=== PATIENT | female | born 1970 | race African-American/Black ===

== ENCOUNTER 2022-10-03 19:46 | Emergency (ER) | payer BC, OTHER, SELFPAY ==
[2022-10-03] VITALS (12 sets, daily range): BP systolic 102–140; BP diastolic 68–87; PULSE 69–82; RESP 16; TEMP 36.7; O2SAT 91–97; BMI 37.6
--- NOTE | 2022-10-03 20:01 | ED_ITS ---
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 Patient states that the pain has been coming and going but never completely goes away. At present it is right 6-7 and is quite painful. It does not increase with deep breathing. Patient states that the pain radiates to her left arm and agrees that radiates to her back as well. It does not appear to be positional. Patient has not had pain like this in the past. No fevers or chills. Related Data Home Medications Medication Instructions Recorded Confirmed venlafaxine 150 mg 150 mg PO DAILY 10/03/22 10/03/22 capsule,extended release 24 hr venlafaxine 75 mg capsule,extended 75 mg PO DAILY 10/03/22 10/03/22 release 24 hr Allergies Allergy/AdvReac Type Severity Reaction Status Date / Time No Known Drug Allergies Allergy Verified 10/03/22 19:59 Review of Systems Status of ROS Reports: 10 or more systems reviewed and unremarkable except as noted in History and below Const Denies: fever, chills or fatigue ENMT Denies: throat pain, neck pain, throat swelling or difficulty swallowing Cardio Reports: chest pain; Denies: palpitations, swelling of feet/ankles, lightheadedness or shortness of breath with exertion Resp Denies: shortness of breath GI Denies: abdominal pain, nausea, vomiting or difficulty swallowing Denies: painful urination Musculo Reports: back pain; Denies: neck pain or extremity pain Integ/Breast Denies: rash Neuro Reports: numbness in extremities (Left arm and left leg); Denies: headache Endo Denies: fatigue Allergy/Immuno Denies: throat swelling PFSH PFSH Social History Smoking Status: Never smoker How often do you have a drink containing alcohol: monthly or less AUDIT-C Alcohol total score: 1 Non-prescribed substance use: denies use Exam Narrative Exam Narrative: Patient is very pleasant well-spoken woman in no acute distress. Head is atraumatic normocephalic. Face is symmetrical. Neck is supple without lymphadenopathy. Oral cavity with moist mucous membranes. Heart with regular rate and rhythm. No murmur or rub is auscultated. Lungs are clear bilaterally. 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 Negative Rivas sign. Lower extremities without edema. No calf tenderness. Const Vital Signs, click to edit/add: Vital Signs - 24 hr 10/03/22 20:00 10/03/22 20:45 10/03/22 20:46 Temperature 98.1 F Pulse Rate 79 78 Pulse Rate [Right Pulse Oximeter] 82 Respiratory Rate 16 Blood Pressure 104/68 Blood Pressure [Left Upper Arm] 117/78 Pulse Oximetry 95 94 94 Oxygen Delivery Method Room Air 10/03/22 21:00 10/03/22 21:02 10/03/22 21:15 Temperature Pulse Rate 71 72 75 Pulse Rate [Right Pulse Oximeter] Respiratory Rate Blood Pressure 116/72 Blood Pressure [Left Upper Arm] Pulse Oximetry 92 91 96 Oxygen Delivery Method 10/03/22 21:30 10/03/22 21:32 10/03/22 21:45 Temperature Pulse Rate 69 71 71 Pulse Rate [Right Pulse Oximeter] Respiratory Rate Blood Pressure 102/87 Blood Pressure [Left Upper Arm] Pulse Oximetry 95 97 95 Oxygen Delivery Method 10/03/22 22:33 10/03/22 23:02 10/03/22 23:32 Temperature Pulse Rate Pulse Rate [Right Pulse Oximeter] Respiratory Rate Blood Pressure 126/79 130/83 140/85 H Blood Pressure [Left Upper Arm] Pulse Oximetry Oxygen Delivery Method 10/04/22 00:21 10/04/22 00:30 10/04/22 00:36 Temperature Pulse Rate 74 70 75 Pulse Rate [Right Pulse Oximeter] Respiratory Rate Blood Pressure 99/81 Blood Pressure [Left Upper Arm] Pulse Oximetry 98 95 93 Oxygen Delivery Method 10/04/22 00:45 10/04/22 01:00 10/04/22 01:06 Temperature Pulse Rate 63 57 L 59 L Pulse Rate [Right Pulse Oximeter] Respiratory Rate Blood Pressure Blood Pressure [Left Upper Arm] Pulse Oximetry 96 97 98 Oxygen Delivery Method 10/04/22 01:15 10/04/22 01:31 10/04/22 01:35 Temperature Pulse Rate 63 118 H 57 L Pulse Rate [Right Pulse Oximeter] Respiratory Rate Blood Pressure Blood Pressure [Left Upper Arm] Pulse Oximetry 93 84 L 94 Oxygen Delivery Method 10/04/22 01:45 10/04/22 02:00 Temperature Pulse Rate 59 L 66 Pulse Rate [Right Pulse Oximeter] Respiratory Rate Blood Pressure Blood Pressure [Left Upper Arm] Pulse Oximetry 93 93 Oxygen Delivery Method Documenting provider has reviewed patient's vital signs: yes Course Course Hospital Course: Differential diagnosis includes but is not limited to acute coronary event, PE, aortic dissection, chest wall pain, bronchitis, pneumonia, costochondritis. Patient will placed on monitor technician, oximetry. Saline lock will be placed. Chest x-ray and labs to include CBC, comprehensive, CRP, troponin,, D-dimer have been ordered. EKG will be accomplished. Reevaluation(s) Reevaluation #1: Patient noted to have negative troponin. CRP mildly elevated at 1.4. She has continued to complain of pain. Will give Toradol 15 mg IV. Will also test for COVID. In light of her past history of a non provoked PE will obtain CT of the chest given her level of discomfort. She is in agreement. Reevaluation #2: Patient noted to be intermittently sleeping but still complaining of left-sided chest pain radiating to left arm and into shoulder blade that is coming and going. I did try to recreate this discomfort but patient has no pain with abduction and adduction against resistance. I do examine her back and there is no evidence of lesions or shingles type rash. She does have some tenderness noted on the upper thoracic vertebrae but no step-offs. No pain with palpation around the left scapula. Patient noted to have only mild discomfort while attempting to sit forward. Patient noted to have negative CT for PE but cholelithiasis. Follow-up ultrasound shows cholelithiasis without of out any evidence of cholecystitis. LFTs within normal limits. This time will do 3rd t roponin. Vital Signs Vital signs: Initial Vital Signs Temperature 98.1 F 10/03/22 20:00 Temperature Source Temporal Artery Scan 10/03/22 20:00 Pulse Rate 82 10/03/22 20:00 Pulse Rhythm Regular 10/03/22 20:00 Respiratory Rate 16 10/03/22 20:00 Blood Pressure 117/78 10/03/22 20:00 Blood Pressure Mean 91 10/03/22 20:00 Blood Pressure Position Sitting 10/03/22 20:00 Pulse Oximetry 95 10/03/22 20:00 Oxygen Delivery Method Room Air 10/03/22 20:00 Vital Signs Temperature 98.1 F 10/03/22 20:00 Pulse Rate 82 10/03/22 20:00 Respiratory Rate 16 10/03/22 20:00 Blood Pressure 117/78 10/03/22 20:00 Pulse Oximetry 95 10/03/22 20:00 Oxygen Delivery Method Room Air 10/03/22 20:00 Temperature 98.1 F 10/03/22 20:00 Pulse Rate 66 10/04/22 02:00 Respiratory Rate 16 10/03/22 20:00 Blood Pressure 99/81 10/04/22 00:36 Pulse Oximetry 93 10/04/22 02:00 Oxygen Delivery Method Room Air 10/03/22 20:00 MDM - Chest Pain MDM Narrative Medical decision making narrative: 1. Chest pain -unknown etiology. Patient has had negative troponin x 3 as well as reassuring EKGs. On the monitor she has had sinus rhythm without evidence of arrhythmia. CT of the chest and thoracic spine did not show any abnormalities. There did not appear to be any rotator cuff pathology although there was some questionable point tenderness along the left medial scapular edge and over the upper thoracic vertebrae. A trial of Toradol did not change her pain although it was noted that she was able to sleep intermittently during her stay and seems objectively improved. LFTs and ultrasound are normal in spite of cholelithiasis. Fortunately no evidence of cholecystitis. 2. Disposition-at this time will discharge patient home as she is had negative cardiac enzymes x3 after 1 week of pain. In addition EKG show no evidence of ischemia or abnormality. Fortunately no evidence of PE, pneumothorax, esophagitis, pericardial effusion, pneumonia. This most likely represents musculoskeletal process. Recommend continued use of anti-inflammatory either in the form of ibuprofen or Aleve. Will also give a small amount of Flexeril 10 mg tablet 1/2-1 tab p.o. q.8 hours p.r.n. discomfort/muscle relaxation need via instant meds. Recommend return to the ED for worsening symptoms. Recommend follow-up with primary MD Dr. Faye for recheck. Dictation done with voice recognition, and as a result, wrong word or [id number] substitutions may have occurred.? There may be errors in the script that have gone undetected.? Please consider this when interpreting information found in this chart. Medical Records Data Attestation: I reviewed the patient's medical records. Lab Data Attestation: I reviewed the patient's lab results. Labs: Lab Results 10/03/22 10/03/22 10/03/22 Range/Units 20:30 21:30 22:07 WBC 6.43 (4.50-11.00) K/uL RBC 4.91 (4.00-5.20) m/uL Hgb 12.9 (12.0-16.0) gm/dL Hct 40.7 (33.0-51.0) % MCV 83 (80-100) fL MCH 26 (26-34) pg MCHC 32 (32-36) gm/dL RDW Coeff of Ke 13.4 (11.5-15.5) % Plt Count 276 (140-440) K/uL Neut % (Auto) 57.6 (42.0-72.0) % Lymph % (Auto) 35.8 (20-44) % [place] % (Auto) 5.9 (0.0-11.0) % Eos % (Auto) 0.2 (0.0-7.0) % Baso % (Auto) 0.2 (0.0-3.0) % Neut # (Auto) 3.71 (1.7-7.0) K/uL Lymph # (Auto) 2.30 (0.90-2.90) K/uL [place] # (Auto) 0.40 (0.00-0.90) K/UL Eos # (Auto) 0.01 (0.00-0.50) K/uL Baso # (Auto) 0.01 (0.00-0.30) K/uL INR 1.01 (0.91-1.10) D-Dimer Quant (PE/DVT) 0.41 (0.00-0.50) ug/ml Sodium 142 (135-149) mmol/L Potassium 4.1 (3.6-5.1) mmol/L Chloride 109 (96-114) mmol/L Carbon Dioxide 26 (20-32) mmol/L BUN 16 (7-30) mg/dL Creatinine 1.3 (0.5-1.5) mg/dL Estimated Creat Clear 48.67 Estimated GFR 49 ml/min Glucose 105 (60-115) mg/dL Calcium 9.1 (8.4-10.6) mg/dL Total Bilirubin 0.4 (0.1-1.5) mg/dL Direct Bilirubin 0.2 (0.0-0.5) mg/dL AST 20 (12-35) U/L ALT 18 (4-35) U/L Alkaline Phosphatase 74 (40-150) U/L Troponin I < 0.01 L (0.01-0.04) ng/mL C-Reactive Protein 1.4 H (0.5-1.0) mg/dL NT-Pro-B Natriuret Pep < 20 pg/mL Total Protein 7.6 (6.0-8.3) g/dL Albumin 4.2 (3.3-5.0) g/dL SARS-CoV-2 (PCR) Negative SARS-CoV-2 (Negative) POC Troponin I 0.00 L (0.01-0.04) ng/ml 10/04/22 Range/Units 01:11 WBC (4.50-11.00) K/uL RBC (4.00-5.20) m/uL Hgb (12.0-16.0) gm/dL Hct (33.0-51.0) % MCV (80-100) fL MCH (26-34) pg MCHC (32-36) gm/dL RDW Coeff of Ke (11.5-15.5) % Plt Count (140-440) K/uL Neut % (Auto) (42.0-72.0) % Lymph % (Auto) (20-44) % [place] % (Auto) (0.0-11.0) % Eos % (Auto) (0.0-7.0) % Baso % (Auto) (0.0-3.0) % Neut # (Auto) (1.7-7.0) K/uL Lymph # (Auto) (0.90-2.90) K/uL [place] # (Auto) (0.00-0.90) K/UL Eos # (Auto) (0.00-0.50) K/uL Baso # (Auto) (0.00-0.30) K/uL INR (0.91-1.10) D-Dimer Quant (PE/DVT) (0.00-0.50) ug/ml Sodium (135-149) mmol/L Potassium (3.6-5.1) mmol/L Chloride (96-114) mmol/L Carbon Dioxide (20-32) mmol/L BUN (7-30) mg/dL Creatinine (0.5-1.5) mg/dL Estimated Creat Clear Estimated GFR ml/min Glucose (60-115) mg/dL Calcium (8.4-10.6) mg/dL Total Bilirubin (0.1-1.5) mg/dL Direct Bilirubin (0.0-0.5) mg/dL AST (12-35) U/L ALT (4-35) U/L Alkaline Phosphatase (40-150) U/L Troponin I (0.01-0.04) ng/mL C-Reactive Protein (0.5-1.0) mg/dL NT-Pro-B Natriuret Pep pg/mL Total Protein (6.0-8.3) g/dL Albumin (3.3-5.0) g/dL SARS-CoV-2 (PCR) (Negative) POC Troponin I 0.00 L (0.01-0.04) ng/ml Imaging Data Chest x-ray: Attestation: I have reviewed the pertinent imaging results. My impression: By my read no evidence of widened mediastinum, infiltrate. Radiologist's impression: The heart is normal in size. The pulmonary vasculature is within normal limits. The lungs are clear. The bones are unremarkable. IMPRESSION: No acute process. CT scan - chest: Attestation: I have reviewed the pertinent imaging results. My impression: No noticeable PE by my review. Radiologist's impression: Heart and vasculature: Contrast opacification of the pulmonary arterial tree is adequate. No sign of pulmonary embolism. Heart size is normal. Thoracic aorta and pulmonary artery are normal in caliber. Lungs and pleura: Mild bilateral lower lobe atelectasis. No consolidation or suspicious nodule.? No pleural effusions, pleural thickening, or pneumothorax. Lymph nodes/mediastinum: No pathologically enlarged lymph nodes. Calcified bihilar and mediastinal lymph nodes. Chest wall: No masses. Upper abdomen: Cholelithiasis. Bones: Unremarkable for age. IMPRESSION: No pulmonary embolism. No acute findings in the chest. Cholelithiasis. US - abdomen: Attestation: I have reviewed the pertinent imaging results. Radiologist's impression: Liver has normal contour. Normal echogenicity of the liver. No liver mass. No intrahepatic bile duct dilation. Cholelithiasis. No gallbladder wall thickening or pericholecystic fluid. Common duct measures 3 mm in caliber, within normal limits. Visualized pancreas is unremarkable. Right kidney measures 9.3 cm long axis. Normal renal parenchymal thickness and echogenicity. No renal mass. No hydronephrosis. Visualized IVC and aorta are unremarkable. IMPRESSION: 1. Cholelithiasis. No other findings of acute cholecystitis. 2. No bile duct dilation. Thoracic spine CT: Attestation: I have reviewed the pertinent imaging results. Radiologist's impression: ertebrae: Alignment is normal. There are no fractures or suspicious bony lesions. Discs and facet joints: Disc spaces and facets are within normal limits.? Extraspinal findings: Calcified bihilar and mediastinal lymph nodes. No pathologically enlarged lymph nodes. Cholelithiasis IMPRESSION: Unremarkable thoracic spine. No sign of acute injury. ECG Data Attestation: I personally reviewed and interpreted this ECG as follows: ECG interpretation date: 10/03/22 Interpretation: EKG by my read shows sinus rhythm at a rate of 85. Prolonged OR at 216 milliseconds borderline. I do not note any acute ST or T-wave changes. EKG 2. By my read shows sinus bradycardia at a rate of [address] or T-wave changes. Discharge Plan Discharge Clinical Impression: Atypical chest pain, Cholelithiasis Patient Disposition: Home, Self-Care Condition: Unchanged Additional Instructions: 1. Continue anti-inflammatory in the form of either Advil or Aleve per bottle instructions. Recommend taking this with food. Flexeril may be used for muscular discomfort. Would start off with a half a tablet instead of the full tablet. Do not drive or use alcohol if using this medication called Flexeril. 2. Return to the emergency room for worsening symptoms. Otherwise follow-up with your primary MD for a recheck. Prescriptions: No Action venlafaxine 75 mg capsule,extended release 24hr 75 mg PO DAILY venlafaxine 150 mg capsule,extended release 24hr 150 mg PO DAILY Follow Up/Referrals: Benita Faye DO [Primary Care Provider] - Stand Alone Forms: MyHealth Info Instructions
--- NOTE | 2022-10-03 20:21 | CRLHL7_ITS ---
For Patients: As a result of the Century Cures Act, medical imaging exams and procedure reports are released immediately into your electronic medical record. You may view this report before your referring provider. If you have questions, please contact your health care provider. INDICATION: Chest pain TECHNIQUE: Chest 1 view. COMPARISON: CT chest 07/10/2016 FINDINGS: The heart is normal in size. The pulmonary vasculature is within normal limits. The lungs are clear. The bones are unremarkable. IMPRESSION: No acute process. Dictated by Priyanka Moody MD @ 10/03/2022 9:07:32 PM Dictated by: Priyanka Moody MD @ 10/03/2022 21:07:55 (Electronically Signed)
[2022-10-03 20:43] LABS: Basophils Absolute Auto 0.01 K/uL (0.00-0.30); Basophils Percent Auto 0.2 % (0.0-3.0); Eosinophils Absolute Auto 0.01 K/uL (0.00-0.50); Eosinophils Percent Auto 0.2 % (0.0-7.0); Hematocrit 40.7 % (33.0-51.0); Hemoglobin* 12.9 gm/dL (12.0-16.0); Immature Granulocytes Abs Auto 0.02 K/uL (0.00-0.30); Immature Granulocytes Pct Auto 0.3 %; Lymphocytes Percent Auto 35.8 % (20-44); Mean Corpuscular HGB Conc 32 gm/dL (32-36); Mean Corpuscular Hemoglobin 26 pg (26-34); Mean Corpuscular Volume 83 fL (80-100); Monocytes Percent Auto 5.9 % (0.0-11.0); Neutrophils Absolute Auto 3.71 K/uL (1.7-7.0); Neutrophils Percent Auto 57.6 % (42.0-72.0); Platelet Count* 276 K/uL (140-440); RDW Coefficient of Variation % 13.4 % (11.5-15.5); Red Blood Count 4.91 m/uL (4.00-5.20); White Blood Count* 6.43 K/uL (4.50-11.00)
[2022-10-03 20:46] LABS: Slide Review Reflex No
[2022-10-03 21:00] LABS: INR 1.01 (0.91-1.10); Prothrombin Time 13.9 Seconds
[2022-10-03 21:02] LABS: D Dimer Quantitative* 0.41 ug/ml (0.00-0.50)
[2022-10-03 21:08] LABS: Albumin* 4.2 g/dL (3.3-5.0); Chloride* 109 mmol/L (96-114)
[2022-10-03 21:09] LABS: Potassium* 4.1 mmol/L (3.6-5.1); Sodium* 142 mmol/L (135-149)
[2022-10-03 21:11] LABS: Alkaline Phosphatase* 74 U/L (40-150); Aspartate Amino Transferase* 20 U/L (12-35); Bilirubin Direct* 0.2 mg/dL (0.0-0.5); Bilirubin Total* 0.4 mg/dL (0.1-1.5); Carbon Dioxide* 26 mmol/L (20-32); Creatinine* 1.3 mg/dL (0.5-1.5); Est. Creatinine Clearance* 48.67; Estimated Glomerular Filt Rate 49 ml/min; Total Protein* 7.6 g/dL (6.0-8.3)
[2022-10-03 21:12] LABS: Alanine Aminotransferase* 18 U/L (4-35); Blood Urea Nitrogen* 16 mg/dL (7-30); Calcium* 9.1 mg/dL (8.4-10.6); Glucose* 105 mg/dL (60-115)
[2022-10-03 21:14] LABS: C Reactive Protein* 1.4 mg/dL (0.5-1.0)
[2022-10-03 21:21] LABS: NT Pro B Type NatriureticPept* < 20 pg/mL
--- NOTE | 2022-10-03 21:24 | CRLHL7_ITS ---
For Patients: As a result of the Century Cures Act, medical imaging exams and procedure reports are released immediately into your electronic medical record. You may view this report before your referring provider. If you have questions, please contact your health care provider. INDICATION: History of PE, chest pain with radiation to back and left arm. TECHNIQUE: CT chest PE was acquired with 95 cc Isovue 370 IV contrast. Permanently recorded images are archived. COMPARISON: Chest CT 07/10/2016. FINDINGS: Heart and vasculature: Contrast opacification of the pulmonary arterial tree is adequate. No sign of pulmonary embolism. Heart size is normal. Thoracic aorta and pulmonary artery are normal in caliber. Lungs and pleura: Mild bilateral lower lobe atelectasis. No consolidation or suspicious nodule. No pleural effusions, pleural thickening, or pneumothorax. Lymph nodes/mediastinum: No pathologically enlarged lymph nodes. Calcified bihilar and mediastinal lymph nodes. Chest wall: No masses. Upper abdomen: Cholelithiasis. Bones: Unremarkable for age. IMPRESSION: No pulmonary embolism. No acute findings in the chest. Cholelithiasis. Please note that all CT scans at this facility use dose modulation, iterative reconstruction, and/or weight-based dosing when appropriate to reduce radiation dose to as low as reasonably achievable. Dictated by Lb Amezquita MD @ 10/03/2022 10:58:33 PM (Electronically Signed)
[2022-10-03 22:07] LABS: Troponin I* < 0.01 ng/mL (0.01-0.04)
[2022-10-03] MEDS: KETOROLAC 15 MG/ML inj IVP (22:11)
[2022-10-03 22:19] LABS: SARS PCR* Negative SARS-CoV-2 (Negative)
[2022-10-04] VITALS (11 sets, daily range): BP systolic 99; BP diastolic 81; PULSE 57–118; O2SAT 84–98
--- NOTE | 2022-10-04 01:23 | CRLHL7_ITS ---
For Patients: As a result of the Cures Act, medical imaging exams and procedure reports are released immediately into your electronic medical record. You may view this report before your referring provider. If you have questions, please contact your health care provider. INDICATION: Interscapular and upper thoracic spine pain. TECHNIQUE: CT thoracic spine with contrast. Permanently recorded images are archived. COMPARISON: Chest CT from the same day. FINDINGS: Vertebrae: Alignment is normal. There are no fractures or suspicious bony lesions. Discs and facet joints: Disc spaces and facets are within normal limits. Extraspinal findings: Calcified bihilar and mediastinal lymph nodes. No pathologically enlarged lymph nodes. Cholelithiasis IMPRESSION: Unremarkable thoracic spine. No sign of acute injury. Please note that all CT scans at this facility use dose modulation, iterative reconstruction, and/or weight-based dosing when appropriate to reduce radiation dose to as low as reasonably achievable. Dictated by Lb Amezquita MD @ 10/04/2022 1:51:50 AM (Electronically Signed)
--- NOTE | 2022-10-04 23:03 | CRLHL7_ITS ---
For Patients: As a result of the Century Cures Act, medical imaging exams and procedure reports are released immediately into your electronic medical record. You may view this report before your referring provider. If you have questions, please contact your health care provider. HISTORY: Cholelithiasis. TECHNIQUE: Ultrasound of the right upper quadrant. COMPARISON: CT chest 10/03/2022. FINDINGS: Liver has normal contour. Normal echogenicity of the liver. No liver mass. No intrahepatic bile duct dilation. Cholelithiasis. No gallbladder wall thickening or pericholecystic fluid. Common duct measures 3 mm in caliber, within normal limits. Visualized pancreas is unremarkable. Right kidney measures 9.3 cm long axis. Normal renal parenchymal thickness and echogenicity. No renal mass. No hydronephrosis. Visualized IVC and aorta are unremarkable. IMPRESSION: 1. Cholelithiasis. No other findings of acute cholecystitis. 2. No bile duct dilation. Dictated by Stanley Hinds MD @ 10/04/2022 1:04:37 AM (Electronically Signed)
== END 2022-10-04 02:15 | disposition home or self-care (01) ==
PROVIDERS: Emergency Provider Family Medicine; PCP Family Medicine
DX: K80.20 Calculus of gallbladder without cholecystitis without obstruction (principal); R07.89 Other chest pain
CPT/HCPCS: 36415; 71045; 71260; 72128; 76705; 80048; 80076; 83880; 84484; 85025; 85379; 85610; 86140; 87635; 93005; 96374; 99285; J1885; Q9967

== ENCOUNTER 2023-11-25 09:03 | Day surgery (SDC) | payer BC, OTHER, SELFPAY ==
[2023-11-25] VITALS (26 sets, daily range): BP systolic 80–146; BP diastolic 57–90; PULSE 71–100; RESP 12–22; TEMP 36.2–37.4; O2SAT 91–99; BMI 41.3
--- NOTE | 2023-11-25 09:17 | CRLHL7_ITS ---
For Patients: As a result of the Century Cures Act, medical imaging exams and procedure reports are released immediately into your electronic medical record. You may view this report before your referring provider. If you have questions, please contact your health care provider. Indication: Upper abdominal pain and nausea Technique: Volumetric multidetector CT images of the abdomen and pelvis were obtained after the administration of intravenous contrast. 125 cc Isovue 370 low osmolar intravenous contrast Comparison: None available. Findings: The lung bases are clear. The liver is normal in attenuation without intrahepatic biliary ductal dilatation. The portal vein is patent. There is markedly hydropic gallbladder with dependent calculi and sludge. There is mild gallbladder wall thickening and pericholecystic inflammatory change. There is no significant common biliary ductal dilatation or abrupt cut off. The spleen is normal in enhancement and size. The stomach and duodenum are grossly unremarkable. The pancreas is normal in enhancement without significant atrophy. The adrenal glands are unremarkable. Cystic changes of the kidneys with otherwise preserved corticomedullary differentiation. No evidence of distal obstructive radiopaque calculus. Moderate stool is seen throughout the colon with questionable mild thickening of the hepatic flexure which may represent secondary inflammatory change. The appendix is unremarkable. There is no significant mesenteric, retroperitoneal, or pelvic sidewall lymph nodes. The aorta is nonaneurysmal. There is no significant atherosclerotic disease appreciated. The solid pelvic viscera are grossly unremarkable. There is no free fluid or free air. The anterior abdominal wall is intact without significant hernias. The lumbar vertebral body heights are grossly maintained in satisfactory alignment without evidence of displaced fracture, lytic or blastic lesion. Impression: Markedly hydropic gallbladder with layering radiopaque calculi. There is gallbladder wall thickening and pericholecystic fluid. Findings are concerning for developing acute cholecystitis. Recommend follow-up with right upper quadrant ultrasound. There is additional questionable secondary thickening of the adjacent hepatic flexure of the colon. Please note that all CT scans at this facility use dose modulation, iterative reconstruction, and/or weight-based dosing when appropriate to reduce radiation dose to as low as reasonably achievable. Dictated by Peña Casillas MD @ 11/25/2023 10:42:23 AM (Electronically Signed)
--- NOTE | 2023-11-25 09:25 | ED.ABDPAIN ---
HPI - Abdominal Pain General Chief Complaint: Abdominal Pain Stated Complaint: gastritis - abdominal pain Time Seen by Provider: 11/25/23 09:09 History of Present Illness HPI narrative: Patient is a 53-year-old woman who presents with 2 days of pain in the epigastrium extending into the superior umbilical region. She has nausea but no vomiting no change in her bowel or bladder no fevers no chills. She has had no similar symptoms previously. She went to the clinic today was transported to the emergency room for further evaluation. Patient has had no recent travel or change in her diet. She has no sick contacts. Again no blood in her stool. Patient otherwise been in her usual good state of health. Related Data Home Medications ?Medication ?Instructions ?Recorded ?Confirmed venlafaxine 150 mg 150 mg PO DAILY 10/03/22 10/03/22 capsule,extended release 24 hr venlafaxine 75 mg capsule,extended 75 mg PO DAILY 10/03/22 10/03/22 release 24 hr Allergies Allergy/AdvReac Type Severity Reaction Status Date / Time No Known Drug Allergies Allergy Verified 11/25/23 10:28 Review of Systems Status of ROS Reports: 10 or more systems reviewed and unremarkable except as noted in History and below PFSH FOR[facility]LY [facility] Social History Smoking Status: Never smoker How often do you have a drink containing alcohol: monthly or less AUDIT-C Alcohol total score: 1 Non-prescribed substance use: denies use Exam Narrative: Exam Narrative: EXAM GENERAL: Patient appears uncomfortable and anxious. EYES: No scleral icterus. LYMPH: No supraclavicular or cervical lymphadenopathy. SKIN: Visible skin seen during exam normal or with benign process only. EXT: No dependent lower extremity pedal edema. HEART: Regular rate and rhythm with no murmurs, rubs, or gallops. LUNGS: Clear to auscultation bilaterally with no crackles or wheezes. ABD: Bowel sounds present with tenderness to palpation in the area superior to the umbilicus extending to the epigastrium.. PSYCH: Good eye contact, speech is not pressured. Const: Vital Signs, click to edit/add: Vital Signs - 24 hr 11/25/23 09:10 11/25/23 09:55 11/25/23 11:15 Temperature 97.9 F 97.9 F Pulse Rate [Pulse Oximeter] 94 81 Respiratory Rate 22 16 Blood Pressure [Ri ght Upper Arm] 120/85 126/77 Pulse Oximetry 96 96 96 Oxygen Delivery Me thod Room Air Room Air Course Vital Signs Vital signs: Initial Vital Signs Temperature 97.9 F 11/25/23 09:10 Temperature Source Temporal Artery Scan 11/25/23 09:10 Pulse Rate 94 11/25/23 09:10 Respiratory Rate 22 11/25/23 09:10 Blood Pressure 120/85 11/25/23 09:10 Blood Pressure Mean 96 11/25/23 09:10 Blood Pressure Position Sitting 11/25/23 09:10 Pulse Oximetry 96 11/25/23 09:10 Oxygen Delivery Method Room Air 11/25/23 09:10 Vital Signs Temperature 97.9 F 11/25/23 09:10 Pulse Rate 94 11/25/23 09:10 Respiratory Rate 22 11/25/23 09:10 Blood Pressure 120/85 11/25/23 09:10 Pulse Oximetry 96 11/25/23 09:10 Oxygen Delivery Method Room Air 11/25/23 09:10 Temperature 97.9 F 11/25/23 11:15 Pulse Rate 81 11/25/23 11:15 Respiratory Rate 16 11/25/23 11:15 Blood Pressure 126/77 11/25/23 11:15 Pulse Oximetry 96 11/25/23 11:15 Oxygen Delivery Method Room Air 11/25/23 11:15 Medications Administered Medications: Generic Name Dose Route Start Last Admin Trade Name Freq PRN Reason Stop Dose Admin Ondansetron HCl 4 mg 11/25/23 09:17 11/25/23 09:44 Ondansetron 2 Mg/Ml Inj IVP 4 mg ONCE PRN Administration Discontinued Medications Generic Name Dose Route Start Last Admin Trade Name Freq PRN Reason Stop Dose Admin Hydromorphone HCl 0.5 mg 11/25/23 09:17 11/25/23 09:44 Hydromorphone 0.5 Mg/0.5 Ml Inj IVP 11/25/23 09:18 0.5 mg ONCE ONE Administration Sodium Chloride 1,000 mls @ 1,000 mls/hr 11/25/23 09:18 11/25/23 11:04 0.9 % Sodium Chloride 1000 Ml IV 11/25/23 10:17 Infused .Q1H COLBY Infusion MDM - Abdominal Pain MDM Narrative Medical decision making narrative: Patient is a 53-year-old woman who presents with 1 day of epigastric and right upper quadrant pain. She has leukocytosis and evidence of cholecystitis on both her CT of the abdomen pelvis as well as her ultrasound of the right upper quadrant. I did give her a L of normal saline 4 mg of Zofran and 0.5 mg of Dilaudid with resolution of her symptoms. General surgery consult was obtained the patient will be admitted to general surgery service for likely cholecystectomy. Patient will be started on IV Zosyn. Differential diagnosis includes but not limited to acute cholecystitis acute cholelithiasis hepatitis bowel obstruction GERD peptic ulcer. Lab Data Labs: Lab Results 11/25/23 11/25/23 Range/Units 09:32 Unknown WBC 11.13 H (4.50-11.00) K/uL RBC 5.81 H (4.00-5.20) m/uL Hgb 15.4 (12.0-16.0) gm/dL Hct 47.4 (33.0-51.0) % MCV 82 (80-100) fL MCH 27 (26-34) pg MCHC 33 (32-36) gm/dL RDW Coeff of Ke 13.3 (11.5-15.5) % Plt Count 262 (140-440) K/uL Neut % (Auto) 72.2 H (42.0-72.0) % Lymph % (Auto) 22.3 (20-44) % Trinity % (Auto) 4.5 (0.0-11.0) % Eos % (Auto) 0.0 (0.0-7.0) % Baso % (Auto) 0.1 (0.0-3.0) % Neut # (Auto) 8.00 H (1.7-7.0) K/uL Lymph # (Auto) 2.50 (0.90-2.90) K/uL Trinity # (Auto) 0.50 (0.00-0.90) K/UL Eos # (Auto) 0.00 (0.00-0.50) K/uL Baso # (Auto) 0.00 (0.00-0.30) K/uL Abs Immat Gran (auto) 0.10 (0.00-0.30) K/uL Imm/Tot Granulo (auto) 0.9 % Sodium 138 (135-149) mmol/L Potassium 4.2 (3.6-5.1) mmol/L Chloride 105 (96-114) mmol/L Carbon Dioxide 25 (20-32) mmol/L Anion Gap 8 (7-15) mEq/L BUN 10 (7-30) mg/dL Creatinine 1.2 (0.5-1.5) mg/dL Estimated Creat Clear 49.59 Estimated GFR 53 ml/min Glucose 127 H (60-115) mg/dL Lactate 1.8 (0.5-1.9) mmol/L Calcium 9.7 (8.4-10.6) mg/dL Total Bilirubin 1.1 (0.1-1.5) mg/dL AST 28 (12-35) U/L ALT 22 (4-35) U/L Alkaline Phosphatase 106 (40-150) U/L Total Protein 9.0 H (6.0-8.3) g/dL Albumin 5.2 H (3.3-5.0) g/dL Amylase 79 (18-89) U/L Urine Color Yellow (Yellow) Urine Appearance Clear (Clear) Urine pH 7.5 (5.0-8.5) Ur Specific Floyd 1.020 (1.000-1.030) Urine Protein Trace A (Negative) Urine Glucose (UA) Negative (Negative) Urine Ketones 3+ A (Negative) Urine Blood Negative (Negative) Urine Nitrite Negative (Negative) Urine Bilirubin Negative (Negative) Urine Urobilinogen 1.0 (0.2-1.0) Ur Leukocyte Esterase Negative (Negative) Urine RBC 0-2 (0-2) Urine WBC 0-2 (0-5) Ur Squamous Epith Cells Few (None-Few) Urine Bacteria None (None) Discharge Plan Discharge Clinical Impression: Acute cholecystitis Patient Disposition: Admitted As Observation Condition: Stable Activity Level: Other Discharge Diet: Other Prescriptions: No Action venlafaxine 75 mg capsule,extended release 24hr 75 mg PO DAILY venlafaxine 150 mg capsule,extended release 24hr 150 mg PO DAILY Follow Up/Referrals: Benita Faye DO [Primary Care Provider] -
[2023-11-25 09:35] LABS: Lactate* 1.8 mmol/L (0.5-1.9)
[2023-11-25 09:41] LABS: Basophils Percent Auto 0.1 % (0.0-3.0); Hematocrit 47.4 % (33.0-51.0); Hemoglobin* 15.4 gm/dL (12.0-16.0); Immature Granulocytes Pct Auto 0.9 %; Lymphocytes Percent Auto 22.3 % (20-44); Mean Corpuscular HGB Conc 33 gm/dL (32-36); Mean Corpuscular Hemoglobin 27 pg (26-34); Mean Corpuscular Volume 82 fL (80-100); Monocytes Percent Auto 4.5 % (0.0-11.0); Neutrophils Percent Auto 72.2 % (42.0-72.0); Platelet Count* 262 K/uL (140-440); RDW Coefficient of Variation % 13.3 % (11.5-15.5); Red Blood Count 5.81 m/uL (4.00-5.20); White Blood Count* 11.13 K/uL (4.50-11.00)
[2023-11-25] MEDS: HYDROmorphone 0.5 mg/0.5 ml inj IVP ×2 (09:44→12:36)
[2023-11-25] MEDS: ONDANSETRON 2 MG/ML inj 4 MG IVP (09:44)
[2023-11-25 09:50] LABS: Slide Review Reflex No
[2023-11-25 09:51] LABS: Albumin* 5.2 g/dL (3.3-5.0); Chloride* 105 mmol/L (96-114); Potassium* 4.2 mmol/L (3.6-5.1); Sodium* 138 mmol/L (135-149)
[2023-11-25 09:53] LABS: Amylase* 79 U/L (18-89); Creatinine* 1.2 mg/dL (0.5-1.5); Est. Creatinine Clearance* 49.59; Estimated Glomerular Filt Rate 53 ml/min
[2023-11-25 09:54] LABS: Alanine Aminotransferase* 22 U/L (4-35); Alkaline Phosphatase* 106 U/L (40-150); Anion Gap 8 mEq/L (7-15); Aspartate Amino Transferase* 28 U/L (12-35); Bilirubin Total* 1.1 mg/dL (0.1-1.5); Blood Urea Nitrogen* 10 mg/dL (7-30); Carbon Dioxide* 25 mmol/L (20-32); Glucose* 127 mg/dL (60-115)
[2023-11-25 09:55] LABS: Calcium* 9.7 mg/dL (8.4-10.6)
[2023-11-25] MEDS: 0.9 % SODIUM CHLORIDE 1000 ml 1,000 ML IV (10:19)
[2023-11-25 10:31] LABS: Appearance Urine Clear (Clear); Bilirubin Urine Negative (Negative); Blood Urine Negative (Negative); Color Urine Yellow (Yellow); Glucose Urine Negative (Negative); Ketones Urine 3+ (Negative); Leukocyte Esterase Urine Negative (Negative); Nitrite Urine Negative (Negative); Protein Urine Trace (Negative); pH Urine 7.5 (5.0-8.5)
[2023-11-25 10:45] LABS: RBC Urine 0-2 (0-2); Squamous Epithelial Cell Urine Few (None-Few); WBC Urine 0-2 (0-5)
--- NOTE | 2023-11-25 10:56 | CRLHL7_ITS ---
For Patients: As a result of the Century Cures Act, medical imaging exams and procedure reports are released immediately into your electronic medical record. You may view this report before your referring provider. If you have questions, please contact your health care provider. Indication: Right upper quadrant abdominal pain Technique: Multiple transverse and longitudinal sonographic grayscale images of the right upper quadrant of the abdomen were obtained, supplemented with color, power, and spectral Doppler imaging. Comparison: Same day CT. Findings: CBD: 0.7 cm. Gallbladder: Positive sonographic Rivas sign. Thickened wall. Cholelithiasis. Impression: 1. Thickened gallbladder wall, cholelithiasis, and positive sonographic Rivas sign. Findings are compatible with acute cholecystitis. 2. Mildly dilated biliary tree. Consider correlation with bilirubin levels to assess for obstruction. Dictated by Milo Hagan MD @ 11/25/2023 11:51:07 AM (Electronically Signed)
[2023-11-25] MEDS: PIPERACILLIN/TAZOBACTAM 3.375 GM in 0.9 % SODIUM CHLORIDE Mini-bag 100 ML IVPB (12:10)
--- NOTE | 2023-11-25 12:56 | PM.GSHP ---
History of Present Illness History of Present Illness Date Seen: 11/25/23 Chief complaint: gastritis - abdominal pain Narrative: The patient is a 53-year-old female who has had abdominal pain for 2 days and was referred to the emergency department by her primary care provider. She states that approximately a month ago she had similar symptoms of epigastric pain. It was thought to be related to gastritis. She was started on pantoprazole twice daily which did seem to help her symptoms. Up until 2 nights ago she was feeling fine until she developed recurrent pain. The pain is constant in her epigastrium which radiates across both sides. Occasionally it radiates to her back. The pain has radiated occasionally as well to her chest. She has not vomited but she has had nausea. She has not had a fever. No change in bowel habits. She tried to take rhonda which helped somewhat. She presented to the emergency department and was found to have acute cholecystitis. She has had no prior surgeries. 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 [employer] Smoking Status: Never smoker How often do you have a drink containing alcohol: monthly or less AUDIT-C Alcohol total score: 1 Non-prescribed substance use: denies use Meds Home Medications and Allergies Home Medications ?Medication ?Instructions ?Recorded ?Confirmed ?Type venlafaxine 150 mg 150 mg PO DAILY 10/03/22 10/03/22 History capsule,extended release 24 hr venlafaxine 75 mg capsule,extended 75 mg PO DAILY 10/03/22 10/03/22 History release 24 hr Allergies Allergy/AdvReac Type Severity Reaction Status Date / Time No Known Drug Allergies Allergy Verified 11/25/23 10:28 Exam Narrative: Exam Narrative: General appearance: Alert, cooperative, and in no distress Eyes: PERRLA, eye lids clear, and sclera white HENT Head: Normocephalic Ears: External ears normal Pulmonary: Clear to auscultation bilaterally Cardiovascular Heart: Regular rate and rhythm Extremities: warm and well perfused Gastrointestinal Abdominal: Protuberant. Patient is mildly tender in the upper abdomen. Musculoskeletal: Extremities: Upper: Both upper extremities have normal joint range of motion and intact strength. Lower: Both lower extremities have normal joint range of motion and intact strength. Skin: Normal skin color, texture, and turgor. Neurologic: No focal deficits Psychiatric: Alert, oriented, cooperative, normal affect. Const: Vital Signs, click to edit/add: Vital Signs - 24 hr 11/25/23 09:10 11/25/23 09:55 11/25/23 11:15 Temperature 97.9 F 97.9 F Pulse Rate [Pulse Oximeter] 94 81 Respiratory Rate 22 16 Blood Pressure [Ri ght Upper Arm] 120/85 126/77 Pulse Oximetry 96 96 96 Oxygen Delivery Me thod Room Air Room Air Results Results Abdomen CT scan report/results: report reviewed and image reviewed Abdominal ultrasound report/results: report reviewed and image reviewed Additional studies: CT scan of the abdomen pelvis done today: Impression: Markedly hydropic gallbladder with layering radiopaque calculi. There is gallbladder wall thickening and pericholecystic fluid. Findings are concerning for developing acute cholecystitis. Recommend follow-up with right upper quadrant ultrasound. There is additional questionable secondary thickening of the adjacent hepatic flexure of the colon. Please note that all CT scans at this facility use dose modulation, iterative reconstruction, and/or weight-based dosing when appropriate to reduce radiation dose to as low as reasonably achievable. Dictated by Peña Casillas MD @ 11/25/2023 10:42:23 AM Ultrasound of the abdomen done today: Impression: 1. Thickened gallbladder wall, cholelithiasis, and positive sonographic Rivas sign. Findings are compatible with acute cholecystitis. 2. Mildly dilated biliary tree. Consider correlation with bilirubin levels to assess for obstruction. Dictated by Milo Hagan MD @ 11/25/2023 11:51:07 AM Progress Note:A&P Assessment and plan (1) Acute cholecystitis: Status: Acute Plan The patient is a 53-year-old female with acute cholecystitis. I explained that the treatment for this is laparoscopic cholecystectomy. We discussed the procedure as well as risks and benefits of surgery which include bleeding, infection, bile leak, conversion to open or injury to other structures, specifically the common bile duct. We also discussed recovery. She is agreeable to proceed. We will plan on surgery this afternoon. She may be able to discharge home later this evening versus recover overnight in the hospital depending on the degree of inflammation.
[2023-11-25] MEDS: LACTATED RINGERS 1000 ML 1,000 ML 100 ML IV (13:00)
--- NOTE | 2023-11-25 14:18 | W.ANESCHARGE ---
Anesthesia Charges Start Date/Time Anesthesia Start Date: 11/25/23 Anesthesia Start Time: 13:10 Stop Date/Time Anesthesia Stop Date: 11/25/23 Anesthesia Stop Time: 14:55 Summary Emergency: MDA
--- NOTE | 2023-11-25 14:34 | SUR.OPER ---
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 PATIENT REMOVED RINGS X 3, DRESS, BRA, & GAVE TO GIRLFRIEND WHO ACCOMPANIED HER IN THE HOLDING AREA. HOLLI CHOI/BENNETT KONG
[2023-11-25] MEDS: BUPIVACAINE 0.25% 30 ML INJECTION (14:38)
--- NOTE | 2023-11-25 14:44 | PM.GSPRC ---
Operative Note Date of procedure: 11/25/23 Pre-op diagnosis: Acute cholecystitis Post-op diagnosis: Same Type of Procedure: Laparoscopic cholecystectomy Indications: The patient is a 53-year-old female who presented to the emergency department today with 2 days of abdominal pain. Workup revealed acute cholecystitis. There was no evidence of biliary obstruction based on her labs. I recommended cholecystectomy and after discussing risks and benefits, she agreed to proceed. Procedure Description: After discussing the risks and benefits of the procedure, the patient signed informed consent.? The operative site was marked and the patient was brought to the operating room and placed on the operating table in supine position.? Care was taken to pad the patient's pressure points.?? The patient was then intubated by anesthesia.?? The operative site was then prepped and draped in the usual sterile fashion.? A time-out was then performed. Entrance to the abdomen was gained via a 5 mm Visiport in the left upper quadrant. The abdomen was insufflated and briefly surveyed for signs of injury. There was none. A 10 mm umbilical port was placed as well as 2 working ports along the right costal margin, all under direct vision. The patient was then placed in reverse Trendelenburg position with the right side up. The gallbladder was markedly edematous. Omentum which was also edematous was stuck to the gallbladder. This was peeled away bluntly. The gallbladder was noted to be distended and tense. A needle was used to aspirate bile from the gallbladder. Once this was done the gallbladder fundus was grasped and retracted cephalad. I continued to dissect the omental adhesions with a combination of cautery and blunt dissection. I was eventually able to visualize the infundibulum of the gallbladder. I then grasped this. Using a combination of blunt dissection with a Pari dissector and the suction blind slat stapling machine operator and cautery, I was able to dissect out the cystic duct and artery until they could clearly be seen entering the gallbladder without any intervening structures. The gallbladder was dissected off the cystic plate to achieve the critical view. Once this was achieved the cystic duct and artery were each clipped with 2 clips proximally and 1 clip distally and transected with the scissors. The gallbladder was then taken off of the liver bed and removed from the abdomen using an Endo-Catch bag. The gallbladder bed was surveyed for hemostasis which appeared excellent. A small amount of bile and tiny stone which had spilled was suctioned from the abdomen. The ports were then removed and the abdomen desufflated. The umbilical port fascia was closed with 0 Vicryl.The skin was closed with absorbable subcuticular suture. Sterile dressings were then applied. Instrument sponge and needle counts were correct at the end of the case. The patient was then woken and transferred to the PACU in stable condition. ? The patient tolerated the procedure well. Findings: Acute cholecystitis with marked gallbladder edema. Anesthesia: GETA Surgeon: Jennie Reddy MD Estimated blood loss (mL): 10 Specimen: Gallbladder Condition: stable Disposition: PACU
--- NOTE | 2023-11-25 14:59 | P.ANES_ITS ---
Anesthesia Charges Start Date/Time Anesthesia Start Date: 11/25/23 Anesthesia Start Time: 13:10 Stop Date/Time Anesthesia Stop Date: 11/25/23 Anesthesia Stop Time: 14:55 Summary Emergency: DISPATCH MANAGER
--- NOTE | 2023-11-25 15:26 | SUR.PHASEI ---
patient met discharge criteria per anesthesia
--- NOTE | 2023-11-25 16:23 | SUR.PHASEII ---
pt de-sats to mid 80's during O2 weaning attempts. attempted to get pt up tp dress and became nauseated. Dr Reddy consulted and wants pt to recover on the floor for overnight, but jennifer go home later tonight if feeling better.
[2023-11-25] MEDS: METOCLOPRAMIDE HCL 5 MG/ML INJ 10 MG IVP (16:26)
[2023-11-25] MEDS: LACTATED RINGERS 1000 ML 1,000 ML 50 ML IV (16:40)
--- NOTE | 2023-11-25 18:59 | PC.NURSE ---
The patient arrived to the floor around 1700.. Patient is drowsy.. although responds to questions. VS on q30. VSS, 1 low BP recheck was noted to be stable. Mild pain rated at 2/10. Ice pack to abdomen... mild distention noted. Lap sites with small amount of bloody drainage, with steri strips. Call light within reach. The patient is still quite tired. O2 saturation maintained greater than 90% on 1L JARVIS. Claudia PURVIS BSN
[2023-11-25] MEDS: OMEPRAZOLE 20 MG CAPSULE DR PO (20:51)
[2023-11-25] MEDS: HYDROCODONE-ACETAMIN 5-325 MG 1 TAB PO (20:52)
[2023-11-26 02:19] VITALS: BP 124/79; PULSE 81; RESP 18; TEMP 36.7; O2SAT 98
--- NOTE | 2023-11-26 05:13 | PC.NURSE ---
[id number] Pt rested well during night, Ice to abdomen, lap sites x4, intact with old drainage noted, no change in drainage amount during shift. tolerating activity well, voiding without difficulty and passing gas. tolerating PO intake, denies N/V.
[2023-11-26 07:00] VITALS: BP 124/79; PULSE 81; RESP 18; TEMP 36.7; O2SAT 98
[2023-11-26] MEDS: OMEPRAZOLE 20 MG CAPSULE DR PO (09:35)
--- NOTE | 2023-11-26 15:38 | PC.NURSE ---
shift note: vss stable. lap sites x4 with scant bloody discharge. IV dc'd intact. Reviewed dc instructions and copies sent with pt. Belongings reviewed and sent with pt at dc.
--- NOTE | 2023-11-27 19:07 | PM.DS1 ---
DS: Providers Provider Date Seen: 11/26/23 Primary care physician: Benita Faye DO Attending Physician on discharge: Eli Estrada MD DS: Summary Hospital Course Hospital Course: Patient underwent a laparoscopic cholecystectomy for acute cholecystitis. On POD#1 she was tolerating a regular diet, pain was well controlled, ambulating independently and voiding. She was discharged home with plans for follow up with Dr. Reddy in clinic. Time Spent with Patient Time attestation: Total time spent providing and/or coordinating discharge services: Exam Narrative: Exam Narrative: Gen: alert and oriented, NAD Resp: equal breath rise bilateral, maintained on room air CV: well perfused Abdomen: soft, appropriate tenderness at incision sites, no guarding or rebound, steri strip dressings in place. Discharge Plan Discharge Disposition: Home w/ Parent or Adult Discharging Surgeon: Jennie Reddy Follow-Up Appointment: [facility] 12/14/23 @ 1pm Prescriptions: New hydrocodone-acetaminophen 5-325 mg Tablet 1 tab PO Q4H PRN (Reason: Pain) Qty: 15 0RF No Action venlafaxine 75 mg capsule,extended release 24hr 75 mg PO DAILY venlafaxine 150 mg capsule,extended release 24hr 150 mg PO DAILY Activity Level: No strenuous activity and Other Activity Detail: No lifting more than 20 lb for 2 weeks Discharge Diet: Regular and Other Patient Instructions: Hydrocodone/Acetaminophen (By mouth), Laparoscopic Cholecystectomy (DC) Additional Instructions: Wound care: Your sutures are under the skin and will dissolve over time. Leave steri strips (white bandages) over incisions until they fall off (or remove after 7 days). OK to shower tomorrow but avoid bathing, soaking or swimming for 2 weeks. Pat the incisions dry. No need to wash or scrub the area. Apply ice to the area as needed for swelling. It is also OK to use a heating pad if this provides more comfort to you. Pain control: You were prescribed a pain medication. This medication contains acetaminophen (Tylenol). If you are taking your prescribed pain pills 4 times daily, do not take additional acetaminophen. As your pain improves, you can try taking acetaminophen instead of the prescribed pain pill. It is ok to take Ibuprofen or Naproxen (per directions on packaging). This medication helps with inflammation and swelling. Take an [id number] stool softener while you are taking prescribed pain medications to help alleviate constipation. I recommend Senna and/or Colace. Take as directed on package. If you have not had a bowel movement in 3 days, try taking Miralax as directed on the package. All of these are available over the counter. Follow-up Follow up with Dr. Reddy in 2-3 weeks Please call if you are experiencing severe pain, nausea, vomiting, difficulty urinating, fever or have not had bowel movement in 4 days after surgery. Forms: [facility] Info Instructions Follow-up: Jennie Reddy MD [Staff Physician] - 12/14/23 1:00 pm ([facility]) Discharge Orders: Discharge Order (Routine); Ordered 11/26/23 Ordered By: Eli Estrada
--- NOTE | 2023-11-29 09:45 | PC.NURSE ---
pt called about nausea [facility] clinic was called and they will call pt and follow up
== END 2023-11-26 14:23 | disposition home or self-care (01) ==
LOC: ED 12:52 → SS 13:04 → MEDSURG 11-26 11:17
PROVIDERS: Emergency Provider Internal Medicine; PCP Family Medicine; Visit Provider Surgery
PROC: 0FT44ZZ Resection of Gallbladder, Percutaneous Endoscopic Approach (ICD-10-PCS; CPT 47562; principal; 2023-11-25 13:15)
DX: K80.12 Calculus of gallbladder with acute and chronic cholecystitis without obstruction (principal); E66.9 Obesity, unspecified; Z68.41 Body mass index [BMI] 40.0-44.9, adult
CPT/HCPCS: 47562; 00790; 36415; 74177; 76705; 80053; 81001; 81003; 82150; 83605; 85025; 88304; 94761; 99140; 99283; 99284; 99285; A9270; J0330; J0665; J1100; J1170; J2250; J2371; J2405; J2543; J2704; J2710; J2765; J3010; J7030; J7120; Q9967